=== PATIENT | female | born 1940 | race Caucasian/White ===

== ENCOUNTER → 2018-11-29 08:51 | Outpatient (CLI) | payer MEDICARE, BC ==
[2015-08-24 05:56] VITALS: BMI 22.0
[~2018-11-29 08:51] MED LIST: CRESTOR20 MG PO; EFFIENT10 MG; ESTRACE 0.5 MG0.5 MG; LISINOPRIL2.5 MG PO; LOW DOSE ASPIRI81 M1 PO; NAMENDA5 MG PO; NITROSTAT0.4 MG SL; PLAVIX75 MG PO
--- NOTE | 2018-12-05 11:54 | ST ---
PATIENT:ASPEN CARRILLO MEDICAL RECORD: [id number] SEX: F LOCATION:[facility] ORDER #: ADMISSION DATE: 11/29/18 AGE OF PATIENT: 78 REFERRING PHYSICIAN: INTERPRETING PHYSICIAN: MERCEDES PIMENTEL MD DATE OF SERVICE: 11/29/2018 PROCEDURE: Nuclear Stress Test. INDICATION: Angina, coronary artery disease, hypertension, hyperlipidemia. She was exercised for 5 minutes 30 seconds on standard John protocol achieving greater than 85% max target heart rate response with 31 mCi of sestamibi injected at peak stress, 11 mCi were used previously for rest images. FINDINGS: Gated SPECT reveals preserved ejection fraction at 84% with good wall motion and thickening and brightening throughout all segments. SPECT imaging Cardiolite was used as myocardial fusion agent. There is homogeneous uptake throughout all segments at rest and stress with no evidence of inducible ischemia or previous infarction. OVERALL IMPRESSION: 1. This is a normal nuclear stress test with no evidence of inducible ischemia or previous infarction. 2. Gated SPECT reveals a preserved ejection fraction at 84%. In this patient with ongoing symptomatology, the current scan does not suggest the presence of hemodynamically significant coronary artery disease. Evaluate noncardiac etiology of chest pain. TRANSINT:[id number] Voice Confirmation ID: [id number] DOCUMENT ID: [id number] MERCEDES PIMENTEL MD at 1154 CC: [id number] DICTATION DATE: 11/29/18 1249 TOPSTITCHER ZIGZAG: 11/30/18 0056 DEP CLI 11/29/[address] [id number]
== END | disposition home or self-care (01) ==
LOC: D.HCCARDIO 08:51
PROVIDERS: ATTEND Internal Medicine Interventional Cardiology
DX: I25.119 Atherosclerotic heart disease of native coronary artery with unspecified angina pectoris (principal)

== ENCOUNTER → 2019-12-01 09:22 | Outpatient (CLI) | payer MEDICARE, BC ==
[2015-08-24 05:56] VITALS: BMI 22.0
--- NOTE | ~2019-12-01 | ST ---
PATIENT:ASPEN CARRILLO MEDICAL RECORD: [id number] SEX: F LOCATION:[facility] ORDER #: ADMISSION DATE: 12/01/19 AGE OF PATIENT: 79 REFERRING PHYSICIAN: INTERPRETING PHYSICIAN: MERCEDES PIMENTEL MD DATE OF SERVICE: 12/01/2019 PROCEDURE: Nuclear stress test. INDICATIONS: Angina, coronary artery disease, hypertension, hyperlipidemia, diabetes. She was exercised on standard Lexiscan protocol with 33 mCi of sestamibi injected at peak stress, 11 mCi used previously for rest images. FINDINGS: Gated SPECT reveals preserved ejection fraction at 73% with good wall motion and thickening and brightening throughout all segments. SPECT imaging: Cardiolite was used as myocardial perfusion agent. There is homogeneous uptake throughout all segments at rest and stress with no evidence of inducible ischemia or previous infarction. OVERALL IMPRESSION: 1. This is a normal nuclear stress test with no evidence of inducible ischemia or previous infarction. 2. Gated SPECT reveals a preserved ejection fraction at 73%. In this patient with ongoing symptomatology, the current scan does not suggest the presence of hemodynamically significant coronary artery disease. Evaluate noncardiac etiology of chest pain. TRANSINT:[id number] Voice Confirmation ID: [id number] DOCUMENT ID: [id number] MERCEDES PIMENTEL MD CC: JAKE KIRKLAND MD [id number] DICTATION DATE: 12/01/19 1559 SHAREPOINT APPLICATION ARCHITECT: 12/02/19 0829 DEP CLI 12/01/[address] [id number]
== END | disposition home or self-care (01) ==
LOC: D.HCCARDIO 09:22
PROVIDERS: ATTEND Internal Medicine Interventional Cardiology
DX: I25.119 Atherosclerotic heart disease of native coronary artery with unspecified angina pectoris (principal)